=== PATIENT | male | born 1945 | race Caucasian/White ===

== ENCOUNTER 2017-11-02 05:32 | Inpatient (IN) ==
[2017-10-22 11:11] LABS: Basophils # 0.1 10*3/uL (0.0-0.2); Basophils % 1.3 % (0.0-0.8); Eosinophils # 0.1 10*3/uL (0.0-0.87); Eosinophils % 1.8 % (0.00-10.9); Hematocrit 45.2 VOL% (42.0-52.0); Immature Granulocytes % 0.3 %; Immature Granulocytes Absolute 0.02 #; Lymphocytes # 1.4 10*3/uL (1.4-4.0); Lymphocytes % 19.5 % (21.2-54.2); Mean Corpuscular HGB Conc 33.2 GM/DL (32-36); Mean Corpuscular Hemoglobin 30 PG (27-34); Mean Corpuscular Volume 89.3 FL (87-102); Mean Platelet Volume 10.8 FL (9.6-12.0); Monocytes # 0.9 10*3/uL (0.11-0.8); Monocytes % 11.8 % (1.7-12.7); Neutrophils # 4.7 10*3/uL (1.4-7.4); Neutrophils % 65.3 % (38.7-73.9); Platelet Count 248 T/CUMM (130-400); Red Blood Count 5.06 MC/CUMM (3.8-5.5); Red Cell Distribution Width 13.2 % (9.3-17.3); White Blood Count 7.2 T/CUMM (4-12)
[2017-10-22 11:15] LABS: Apearance,Urine CLEAR (Clear); Bacteria,Urine Occasional /HPF (Few); Bilirubin,Urine Negative (Negative); Blood, Urine Small mg/dL (Negative); Glucose,Urine (UA) Negative (Negative); Ketones,Urine Negative (Negative); Nitrite,Urine Negative (Negative); Protein,Urine Negative; RBC,Urine 6 /HPF (0-4); Squamous Epithelial Cell,Urine Occasional /HPF (0-10); Urine Color Yellow (Yellow); WBC,Urine 1 /HPF (0-6)
[2017-10-22 11:20] LABS: INR 0.9; PT Patient Result 9.9 SECS; Partial Thromboplastin Time 26.2 SECS (0-40)
[2017-10-22 11:37] LABS: Albumin 3.5 G/DL (3.4-5.0); Bilirubin,Total 0.5 MG/DL (0.2-1.0); Osmolality,Calculated 279.4 MOS/KG (273-304); Potassium 4.3 MMOL/L (3.5-5.1); Total Protein 7.4 G/DL (6.4-8.3)
[2017-11-02] MEDS ORDERED: DIAZEPAM 5 MG TABLET ONE (06:00)
[2017-11-02] MEDS ORDERED: GABAPENTIN 400 MG CAPSULE PO ONE (06:00)
[2017-11-02] MEDS ORDERED: ACETAMINOPHEN 500 MG TABLET PO ONE (06:00)
[2017-11-02] MEDS ORDERED: FAMOTIDINE 20 MG TABLET PO ONE (06:00)
[2017-11-02] MEDS ORDERED: ALBUTEROL/IPRATROPIUM 3 ML NEB RESP TX ONE (06:00)
[2017-11-02] MEDS ORDERED: DIAZEPAM 5 MG TABLET PO ONE (06:00)
[2017-11-02] MEDS ORDERED: GABAPENTIN 400 MG CAPSULE ONE (06:01)
[2017-11-02] MEDS ORDERED: FAMOTIDINE 20 MG TABLET ONE (06:01)
[2017-11-02] MEDS ORDERED: VANCOMYCIN 1,000 MG VIAL ONE (06:01)
[2017-11-02] MEDS ORDERED: ACETAMINOPHEN 500 MG TABLET ONE (06:01)
[2017-11-02] MEDS ORDERED: VANCOMYCIN INJ 1,000 MG in SODIUM CHLORIDE 0.9% 250 ML IV ONE ×2 (06:30→21:00)
[2017-11-02] MEDS ORDERED: ceFAZolin 2,000 MG in PREMIX 1 EACH IV ONE (06:30)
[2017-11-02] MEDS: LACTATED RINGERS 1,000 ML IV SCH ×4 (07:10→19:59)
[2017-11-02] MEDS ORDERED: TRANEXAMIC ACID 1,000 MG/10 ML VIAL ONE (07:29)
[2017-11-02] MEDS ORDERED: BACITRACIN OINT 0.9 GM PACK TOP ONE (07:31)
[2017-11-02] MEDS ORDERED: BUPIVACAINE SPINAL 0.75% 2 ML AMP SPINAL ONE (07:33)
[2017-11-02] MEDS ORDERED: MAGNESIUM HYDROXIDE SUSP 30 ML UDCUP PO PRN (12:26)
[2017-11-02] MEDS ORDERED: MORPHINE 4 MG/1 ML VIAL IV PRN ×2 (12:26)
[2017-11-02] MEDS ORDERED: oxyCODONE IR 5 MG TABLET PO PRN ×2 (12:26)
[2017-11-02] MEDS ORDERED: ONDANSETRON 4 MG/2 ML VIAL IV PRN (12:26)
[2017-11-02] MEDS ORDERED: diphenhydrAMINE CAP 25 MG CAPSULE PO PRN (12:26)
[2017-11-02] MEDS ORDERED: ZALEPLON 5 MG CAPSULE PO PRN (12:26)
[2017-11-02] MEDS ORDERED: SUFentanil 50 MCG/ML AMP ONE (12:28)
[2017-11-02] MEDS ORDERED: PROPOFOL 500 MG/50 ML BOTTLE IV ONE (12:28)
[2017-11-02] MEDS ORDERED: GLYCOPYRROLATE 0.4 MG/2 ML VIAL ONE (12:28)
[2017-11-02] MEDS ORDERED: ONDANSETRON 4 MG/2 ML VIAL ONE (12:28)
[2017-11-02] MEDS ORDERED: SODIUM CHLORIDE 0.9% 100 ML IV ONE (12:28)
[2017-11-02] MEDS ORDERED: PHENYLEPHRINE 1 MG/10 ML SYRINGE IV ONE (12:29)
[2017-11-02] MEDS ORDERED: ROPIVACAINE 0.5% 30 ML VIAL ONE (12:29)
[2017-11-02] MEDS: KETOROLAC 30 MG/1 ML VIAL IV SCH ×2 (14:00→20:39)
[2017-11-02] MEDS ORDERED: PHENOL 1.4% THROAT SPRAY 177 ML BOTTLE PO PRN (14:16)
[2017-11-02] MEDS: ceFAZolin 2,000 MG in PREMIX 1 EACH IV SCH ×2 (15:45→23:34)
[2017-11-02] MEDS: ACETAMINOPHEN 500 MG TABLET PO SCH ×2 (15:45→23:28)
[2017-11-02] MEDS: DOCUSATE SODIUM 100 MG CAPSULE PO SCH (20:38)
[2017-11-02] MEDS: MONTELUKAST 10 MG TABLET PO SCH (20:38)
[2017-11-02] MEDS: PANTOPRAZOLE 40 MG TABLET PO SCH (20:39)
[2017-11-02] MEDS: ATORVASTATIN 10 MG TABLET PO SCH (20:39)
[2017-11-03] MEDS: KETOROLAC 30 MG/1 ML VIAL IV SCH ×2 (03:21→07:45)
[2017-11-03] MEDS: LACTATED RINGERS 1,000 ML IV SCH (05:12)
[2017-11-03] MEDS: ACETAMINOPHEN 500 MG TABLET PO SCH ×2 (06:00→10:23)
[2017-11-03] MEDS ORDERED: FONDAPARINUX 2.5 MG/0.5 ML SYRINGE SUBCUT SCH (06:30)
[2017-11-03 06:44] LABS: Basophils # 0.1 10*3/uL (0.0-0.2); Basophils % 0.6 % (0.0-0.8); Eosinophils # 0.2 10*3/uL (0.0-0.87); Eosinophils % 2.7 % (0.00-10.9); Hematocrit 35.7 VOL% (42.0-52.0); Hemoglobin 12.1 GM/DL (14.0-18.0); Immature Granulocytes % 0.4 %; Immature Granulocytes Absolute 0.03 #; Lymphocytes # 0.9 10*3/uL (1.4-4.0); Lymphocytes % 10.5 % (21.2-54.2); Mean Corpuscular HGB Conc 33.9 GM/DL (32-36); Mean Corpuscular Hemoglobin 30 PG (27-34); Mean Corpuscular Volume 87.9 FL (87-102); Mean Platelet Volume 10.9 FL (9.6-12.0); Monocytes # 0.9 10*3/uL (0.11-0.8); Monocytes % 11.1 % (1.7-12.7); Neutrophils # 6.2 10*3/uL (1.4-7.4); Neutrophils % 74.7 % (38.7-73.9); Platelet Count 181 T/CUMM (130-400); Red Blood Count 4.06 MC/CUMM (3.8-5.5); Red Cell Distribution Width 13.2 % (9.3-17.3); White Blood Count 8.3 T/CUMM (4-12)
[2017-11-03 07:20] LABS: Calcium 7.9 MG/DL (8.5-10.1); Osmolality,Calculated 281.1 MOS/KG (273-304); Potassium 4.4 MMOL/L (3.5-5.1)
[2017-11-03] MEDS ORDERED: MONTELUKAST 10 MG TABLET PO SCH (09:00)
[2017-11-03] MEDS ORDERED: ATORVASTATIN 10 MG TABLET PO SCH (09:00)
[2017-11-03] MEDS ORDERED: PANTOPRAZOLE 40 MG TABLET PO SCH (09:00)
[2017-11-03] MEDS: MONTELUKAST 10 MG TABLET PO SCH (10:21)
[2017-11-03] MEDS: ATORVASTATIN 10 MG TABLET PO SCH (10:22)
[2017-11-03] MEDS: PANTOPRAZOLE 40 MG TABLET PO SCH (10:22)
[2017-11-03] MEDS: DOCUSATE SODIUM 100 MG CAPSULE PO SCH (10:23)
[2017-11-03 11:12] VITALS: BP 131/54
[2017-11-03] MEDS ORDERED: CELECOXIB 200 MG CAPSULE PO SCH (18:27)
== END 2017-11-03 14:10 | disposition home health service (06) | DRG 470 ==
LOC: N.OR 05:32 → N.SDSINP 05:34 → N.3E 12:26
PROVIDERS: ADMIT Orthopaedic Surgery; ATTEND Orthopaedic Surgery